=== PATIENT | male | born 1975 | race American Indian/Alaskan Native ===

== ENCOUNTER 2017-11-26 18:30 | Emergency (ER) | payer MEDICAID ==
[2017-11-26] MEDS ORDERED: MOTRIN PO ONE (19:53)
[2017-11-26] MEDS ORDERED: NORCO 7.5/325 PO ONE (19:53)
--- NOTE | 2017-11-26 19:57 | Emergency Department Report ---
ED ENT HPI - General Chief complaint: Dental/Oral Stated complaint: TOOTH ACHE Time Seen by Provider: 11/26/17 19:46 Source: patient Mode of arrival: Ambulatory Limitations: No Limitations - History of Present Illness Initial comments: 42-year-old -[place] male presents to emergency room complaining of a crackle right bottom tooth. Patient states he cannot find a dentist she takes Medicaid. Patient reports his been taking 800 mg of ibuprofen [id number] bran and has not helped with this pain. MD complaint: tooth pain -: days(s) (2) Location: tooth # (28) Severity scale (0 -10): 8 Quality: aching, sharp Consistency: constant Improves with: none Worsens with: eating Associated Symptoms: toothache. denies: gum swelling - Related Data Previous Rx's Medication Instructions Recorded Last Taken Type Ibuprofen [Motrin 800 MG tab] 800 mg PO Q8HR PRN #30 tablet 11/26/17 Unknown Rx traMADol [Ultram 50 MG tab] 50 mg PO Q6HR PRN #20 tablet 11/26/17 Unknown Rx Allergies Allergy/AdvReac Type Severity Reaction Status Date / Time No Known Allergies Allergy Unverified 11/26/17 19:53 ED Dental HPI - General Chief complaint: Dental/Oral Stated complaint: TOOTH ACHE Time Seen by Provider: 11/26/17 19:46 Source: patient Mode of arrival: Ambulatory Limitations: No Limitations - Related Data Previous Rx's Medication Instructions Recorded Last Taken Type Ibuprofen [Motrin 800 MG tab] 800 mg PO Q8HR PRN #30 tablet 11/26/17 Unknown Rx traMADol [Ultram 50 MG tab] 50 mg PO Q6HR PRN #20 tablet 11/26/17 Unknown Rx Allergies Allergy/AdvReac Type Severity Reaction Status Date / Time No Known Allergies Allergy Unverified 11/26/17 19:53 ED Review of Systems ROS: Stated complaint: TOOTH ACHE Other details as noted in HPI Comment: All other systems reviewed and negative ENT: dental pain ED Past Medical Hx - Past Medical History Previous Medical History?: No 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 - Surgical History Past Surgical History?: No - Social History Smoking Status: Current Some Day Smoker Substance Use Type: Alcohol - Medications Home Medications: Home Medications Medication Instructions Recorded Confirmed Last Taken Type Ibuprofen [Motrin 800 MG tab] 800 mg PO Q8HR PRN #30 tablet 11/26/17 Unknown Rx traMADol [Ultram 50 MG tab] 50 mg PO Q6HR PRN #20 tablet 11/26/17 Unknown Rx ED Physical Exam - General Limitations: No Limitations General appearance: alert, in no apparent distress - Head Head exam: Present: atraumatic, normocephalic - Expanded ENT Exam Expanded Teeth exam: Present: dental tenderness # (28). Absent: gingival enlargement Throat exam: Negative: tonsillomegaly, tonsillar exudate - Neck Neck exam: Present: full ROM. Absent: lymphadenopathy ED Course Vital Signs 11/26/17 18:40 Temperature 98.2 F Pulse Rate 60 Respiratory 16 Rate Blood Pressure 131/89 O2 Sat by Pulse 100 Oximetry ED Medical Decision Making - Medical Decision Making Patient evaluated by this provider fast track. Patient was given [place] and ibuprofen for pain management. Patient's given a handout for local dental clinics that takes Medicaid and no insurance.. Discharge patient on tramadol and ibuprofen for pain management. Patient verbalize understanding Critical care attestation.: If time is entered above; I have spent that time in minutes in the direct care of this critically ill patient, excluding procedure time. ED Disposition Clinical Impression: Pain, dental Disposition: DC-01 TO HOME OR SELFCARE Is pt being admited?: No Does the pt Need Aspirin: No Condition: Stable Instructions: Toothache (ED), Acute dental trauma (ED) Additional Instructions: Please take pain medication as needed. Please follow up with one of the dental clinics that I have listed below in your handout. Prescriptions: Ibuprofen [Motrin 800 MG tab] 800 mg PO Q8HR PRN #30 tablet PRN Reason: Pain , Severe (7-10) traMADol [Ultram 50 MG tab] 50 mg PO Q6HR PRN #20 tablet PRN Reason: Pain Referrals: PRIMARY CARE, [Primary Care Provider] - 3-5 Days [facility] [Outside] - 3-5 Days [facility] [Outside] - 3-5 Days [facility] [Provider Group] - 3-5 Days Forms: Work/School Release Form(ED)
[2017-11-26 20:11] VITALS: BP 132/72
== END 2017-11-26 20:09 | disposition home or self-care (01) ==
LOC: ED 18:30
DX: K08.89 Other specified disorders of teeth and supporting structures (principal); F17.200 Nicotine dependence, unspecified, uncomplicated
CPT/HCPCS: 99282

== ENCOUNTER 2017-12-19 14:35 | Emergency (ER) | payer MEDICAID ==
[2017-12-19 14:55] VITALS: BP 149/99
--- NOTE | 2017-12-19 15:37 | Emergency Department Report ---
ED ENT HPI - General Chief complaint: Dental/Oral Stated complaint: INFECTION IN TOOTH Time Seen by Provider: 12/19/17 15:22 Source: patient Mode of arrival: Ambulatory Limitations: No Limitations - History of Present Illness Initial comments: This is a 42-year-old -Martiniquais male who presents with dental pain on the right lower side for 2 days. Patient states he was seen in an ER about 2 weeks ago and was given some pain medication which he held the pain returned 2 days ago. He is still having pain from fracture to all right lower side. Patient states he called an emergency dental clinic and he was only able to get an appointment for January 13. She reports pain is 10 out of 10 on pain scale and worse when eating. Patient denies sore throat, difficulty swallowing, drooling, and fever. MD complaint: tooth pain Onset/Timin -: days(s) Location: tooth # (#28) 1 - Partial fractured tooth Severity: severe Severity scale (0 -10): 10 Quality: aching, constant Consistency: constant Improves with: none Worsens with: eating Context- Dental: history of dental caries, poor dental care Associated Symptoms: gum swelling, toothache. denies: fever, cough, pain with swallowing, sore throat, tinnitus, hearing loss, discharge from ear, rhinorrhea - Related Data Previous Rx's Medication Instructions Recorded Last Taken Type Ibuprofen [Motrin 800 MG tab] 800 mg PO Q8HR PRN #30 tablet 11/26/17 Unknown Rx traMADol [Ultram 50 MG tab] 50 mg PO Q6HR PRN #20 tablet 11/26/17 Unknown Rx Clindamycin [Clindamycin CAP] 300 mg PO Q8H #21 cap 12/19/17 Unknown Rx Naproxen [Naprosyn] 500 mg PO BID #14 tablet 12/19/17 Unknown Rx Allergies Allergy/AdvReac Type Severity Reaction Status Date / Time procaine [From Novocain] Allergy Swelling Verified 12/19/17 14:55 ED Dental HPI - General Chief complaint: Dental/Oral Stated complaint: INFECTION IN TOOTH Time Seen by Provider: 08/02/18 15:22 Source: patient Mode of arrival: Ambulatory Limitations: No Limitations - Related Data Previous Rx's Medication Instructions Recorded Last Taken Type Ibuprofen [Motrin 800 MG tab] 800 mg PO Q8HR PRN #30 tablet 11/26/17 Unknown Rx traMADol [Ultram 50 MG tab] 50 mg PO Q6HR PRN #20 tablet 11/26/17 Unknown Rx Clindamycin [Clindamycin CAP] 300 mg PO Q8H #21 cap 12/19/17 Unknown Rx Naproxen [Naprosyn] 500 mg PO BID #14 tablet 12/19/17 Unknown Rx Allergies Allergy/AdvReac Type Severity Reaction Status Date / Time procaine [From Novocain] Allergy Swelling Verified 12/19/17 14:55 ED Review of Systems ROS: Stated complaint: INFECTION IN TOOTH Other details as noted in HPI Constitutional: denies: chills, fever ENT: dental pain (right lower side dental pain at #28). 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 - Surgical History Past Surgical History?: Yes Additional Surgical History: vasectomy - Social History Smoking Status: Former Smoker Substance Use Type: Alcohol, Marijuana - Medications Home Medications: Home Medications Medication Instructions Recorded Confirmed Last Taken Type Ibuprofen [Motrin 800 MG tab] 800 mg PO Q8HR PRN #30 tablet 11/26/17 Unknown Rx traMADol [Ultram 50 MG tab] 50 mg PO Q6HR PRN #20 tablet 11/26/17 Unknown Rx Clindamycin [Clindamycin CAP] 300 mg PO Q8H #21 cap 12/19/17 Unknown Rx Naproxen [Naprosyn] 500 mg PO BID #14 tablet 12/19/17 Unknown Rx ED Physical Exam - General Limitations: No Limitations General appearance: alert, in no apparent distress - ENT ENT exam: Present: mucous membranes moist, other (partial tooth #28, surrounding mucosal swelling, tenderness to palpation) - Respiratory Respiratory exam: Present: normal lung sounds bilaterally. Absent: respiratory distress - Cardiovascular Cardiovascular Exam: Present: regular rate, normal rhythm. Absent: systolic murmur, diastolic murmur, rubs, gallop - GI/Abdominal GI/Abdominal exam: Present: soft, normal bowel sounds. Absent: organomegaly, mass - Neurological Exam Neurological exam: Present: alert, oriented X3 - Psychiatric Psychiatric exam: Present: normal affect, normal mood - Skin Skin exam: Present: warm, dry, intact, normal color. Absent: rash ED Course Vital Signs 12/19/17 12/19/17 14:52 17:30 Temperature 98.8 F 98.5 F Pulse Rate 63 66 Respiratory 18 16 Rate Blood Pressure 149/99 O2 Sat by Pulse 98 99 Oximetry ED Medical Decision Making - Medical Decision Making This is a 42-year-old male that presents with toothache from fractured tooth # 28 for 2 days. Patient is stable and was examined by me. Susceptible of dental tooth fracture. Discussed plan with patient to follow up with dentist. Patient was given a handout of emergency dental clinics. He agreed with ER plan. Discharged home with clindamycin and naproxen. Follow up with dentist in 2-3 days. Critical care attestation.: If time is entered above; I have spent that time in minutes in the direct care of this critically ill patient, excluding procedure time. ED Disposition Clinical Impression: Toothache Fracture of tooth Qualifiers: Encounter type: initial encounter Fracture type: open Qualified Code(s): S02.5XXB - Fracture of tooth (traumatic), initial encounter for open fracture Disposition: - TO HOME OR SELFCARE Is pt being admited?: No Does the pt Need Aspirin: No Condition: Stable Instructions: Dental Caries (ED), Acute dental trauma (ED), Toothache (ED) Additional Instructions: Complete all days of clindamycin as prescribed for 14 days. Follow up with Dentist in 24-72 hours. Prescriptions: Clindamycin [Clindamycin CAP] 300 mg PO Q8H #21 cap Naproxen [Naprosyn] 500 mg PO BID #14 tablet Referrals: [facility] [Outside] - 3-5 Days [facility] [Outside] - 3-5 Days [facility] [Outside] - 3-5 Days Forms: Work/School Release Form(ED) Time of Disposition: 15:36 Print Language: GREEK
== END 2017-12-19 17:30 | disposition home or self-care (01) ==
LOC: ED 14:35
DX: S02.5XXB Fracture of tooth (traumatic), initial encounter for open fracture (principal); F12.10 Cannabis abuse, uncomplicated; Z87.891 Personal history of nicotine dependence; Z88.6 Allergy status to analgesic agent; Z98.890 Other specified postprocedural states; X58.XXXA Exposure to other specified factors, initial encounter; Y93.89 Activity, other specified; Y99.8 Other external cause status; Y92.89 Other specified places as the place of occurrence of the external cause
CPT/HCPCS: 99282

== ENCOUNTER 2017-12-20 08:04 | Emergency (ER) | payer MEDICAID ==
[2017-12-20 08:11] VITALS: BP 125/83
--- NOTE | 2017-12-20 08:51 | Emergency Department Report ---
ED Recheck HPI - General Chief Complaint: Dental/Oral Stated Complaint: SWELLING/TOOTH Time Seen by Provider: 12/20/17 08:50 Source: patient Mode of arrival: Ambulatory Limitations: No Limitations - History of Present Illness Initial Comments: Patient complaint of facial swelling to the right with tooth pain. He said he was here yesterday and was seen for the same thing. He said he was given clindamycin and naproxen which she started to take but his face is swollen this morning. Pain to right tooth is 3/10 and achy worse with talking and eating. Denies any nausea or vomiting. Denies any sore throat, facial pain or nasal congestion. Denies any cough or congestion MD Complaint: other Onset/Timin Initial Visit For: abscess (facial swelling and tooth abscess) Returns Today for: persistent/worsening Symptoms Since Prior Visit: worsening pain, worsening swelling Context: other (patient here for recheck for worsening swelling and pain to tooth) Associated Symptoms: none Treatments Prior to Arrival: Given Antibiotics on, Given Pain Meds on - Related Data Previous Rx's Medication Instructions Recorded Last Taken Type Ibuprofen [Motrin 800 MG tab] 800 mg PO Q8HR PRN #30 tablet 11/26/17 Unknown Rx traMADol [Ultram 50 MG tab] 50 mg PO Q6HR PRN #20 tablet 11/26/17 Unknown Rx Clindamycin [Clindamycin CAP] 300 mg PO Q8H #21 cap 12/19/17 Unknown Rx Naproxen [Naprosyn] 500 mg PO BID #14 tablet 12/19/17 Unknown Rx Allergies Allergy/AdvReac Type Severity Reaction Status Date / Time procaine [From Novocain] Allergy Swelling Verified 12/19/17 14:55 ED Review of Systems ROS: Stated complaint: SWELLING/TOOTH Other details as noted in HPI Constitutional: denies: chills, fever Eyes: denies: eye pain, eye discharge, vision change ENT: dental pain (and swelling). denies: ear pain, throat pain, hearing loss, congestion ( to face) Respiratory: denies: cough, shortness of breath, SOB with exertion, SOB at rest , stridor, wheezing Cardiovascular: denies: chest pain, palpitations, dyspnea on exertion, edema, syncope Musculoskeletal: denies: arthralgia Skin: denies: rash, lesions Neurological: denies: headache ED Past Medical Hx - Past Medical History Previous Medical History?: Yes 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. dermatitis - Surgical History Past Surgical History?: Yes Additional Surgical History: vasectomy - Family History Family history: hypertension - Social History Smoking Status: Never Smoker Substance Use Type: Alcohol, Marijuana - Medications Home Medications: Home Medications Medication Instructions Recorded Confirmed Last Taken Type Ibuprofen [Motrin 800 MG tab] 800 mg PO Q8HR PRN #30 tablet 11/26/17 Unknown Rx traMADol [Ultram 50 MG tab] 50 mg PO Q6HR PRN #20 tablet 11/26/17 Unknown Rx Clindamycin [Clindamycin CAP] 300 mg PO Q8H #21 cap 12/19/17 Unknown Rx Naproxen [Naprosyn] 500 mg PO BID #14 tablet 12/19/17 Unknown Rx ED Physical Exam - General Limitations: No Limitations General appearance: alert, in no apparent distress - Head Head exam: Present: atraumatic, normocephalic, normal inspection - Eye Eye exam: Present: normal appearance, PERRL, EOMI Pupils: Present: normal accommodation - ENT ENT exam: Present: normal exam, normal orophraynx, mucous membranes moist - Expanded ENT Exam Expanded Mouth exam: Present: normal external inspection Teeth exam: Present: dental caries, fractured tooth # (#28), dental tenderness # (#28), gingival enlargement, other (cellulitis and swelling to right tooth) 1 - Fractured (partial fracture without any palpable exposure), Dental Tenderness (#28 with caries), Other (swelling. Right facial swelling) Throat exam: Positive: normal inspection - Neck Neck exam: Present: normal inspection, tenderness, full ROM, other (no C-spine tenderness). Absent: meningismus, lymphadenopathy - Respiratory Respiratory exam: Present: normal lung sounds bilaterally. Absent: respiratory distress, chest wall tenderness - Cardiovascular Cardiovascular Exam: Present: regular rate, normal rhythm, normal heart sounds. Absent: systolic murmur, diastolic murmur - Extremities Exam Extremities exam: Present: normal inspection, full ROM, normal capillary refill , other (ambulates without any difficulties). Absent: tenderness, pedal edema, joint swelling, calf tenderness - Neurological Exam Neurological exam: Present: alert, oriented X3, normal gait - Psychiatric Psychiatric exam: Present: normal affect, normal mood - Skin Skin exam: Present: warm, dry, intact, normal color. Absent: rash ED Course Vital Signs 12/20/17 08:08 Temperature 98.7 F Pulse Rate 74 Respiratory 18 Rate Blood Pressure 125/83 O2 Sat by Pulse 97 Oximetry - Reevaluation(s) Reevaluation #1: 12/20/17 09:52 Patient stable throughout ED course. He was here yesterday and he took naproxen and clindamycin prior to coming to the emergency room ED Recheck MDM - Differential Diagnosis Dental abscess, gingivitis, tooth fracture, dental caries, toothache - Medical Decision Making This is a 42-year-old male that was here yesterday and was treated for toothache , gingivitis and oral cellulitis with clindamycin and naproxen. He states that he is taken it but he woke up this morning and he had right facial swelling. Patient said he has a dental appointment on 01/13/2018 but he is wondering why his face is swollen. Patient was seen by provider yesterday and it was documented that he had some swollen. Patient was seen and evaluated by myself and found to have oral cellulitis, dental abscess, gingivitis, dental luisa #28 and fractured tooth at #28 otherwise is mouth exam is normal. Heart and lungs normal. Ear and nose exam is normal. He has no lymphadenopathy. I discussed the patient that he has a dental abscess and he will need to be of the antibiotic for at least 5 days before a dentist will do a procedure on him. I discussed with him that he needs to continue to take his antibiotic but his appointment is not until the so I told him I can give him a different dentist to call [facility] to see if he can get the mother appointment. Patient got upset and said that his face is swollen and he came in yesterday and started on medication was given. He became verbally aggressive and yelling and verbally threatening. I told him that I cannot do a dental procedure in the emergency room but he can go to different dentist was just [facility] dental clinic and he can get an earlier appointment but he refused and said that he came in yesterday to be treated and now he is worse. Patient was verbally threatening so I told him that I will return to talk to him after he calms down. Patient left the room and axis be discharged us. He was directed to talk to charge nurse. He decided to leave after charge nurse. Patient was seen and examined but left before given discharge instruction paperwork Tooth abscess Dental Luisa #28 Fractured tooth #28 Gingivitis Patient was started on clindamycin and naproxen yesterday and was told to continue his clindamycin and naproxen prior to him leaving. He has a dental appointment and I did not get a chance to give him referral to [facility] because he left before I can give him his report. His vital signs are stable and is afebrile and he did not look toxic in appearance. Critical care attestation.: If time is entered above; I have spent that time in minutes in the direct care of this critically ill patient, excluding procedure time. ED Disposition Clinical Impression: Toothache, Dental caries, Dental abscess Fracture of tooth Qualifiers: Encounter type: initial encounter Fracture type: closed Qualified Code(s): S02.5XXA - Fracture of tooth (traumatic), initial encounter for closed fracture Disposition: Z-07 PAT REG,TRIAGED-NO MSE Is pt being admited?: No Does the pt Need Aspirin: No Condition: Stable
== END 2017-12-20 08:56 | disposition left against medical advice (07) ==
LOC: ED 08:04
DX: S02.5XXA Fracture of tooth (traumatic), initial encounter for closed fracture (principal); K02.9 Dental caries, unspecified; K04.7 Periapical abscess without sinus; F12.10 Cannabis abuse, uncomplicated; Z88.8 Allergy status to other drugs, medicaments and biological substances; X58.XXXA Exposure to other specified factors, initial encounter; Y93.89 Activity, other specified; Y92.89 Other specified places as the place of occurrence of the external cause; Y99.8 Other external cause status
CPT/HCPCS: 99281